=== PATIENT | female | born 1965 | race Caucasian/White ===

== ENCOUNTER → 2017-01-02 | Outpatient (REF) | payer OTHER ==
[2017-01-02 14:49] LABS: VITAMIN B12 LEVEL 252 PG/ML (247-911)
[2017-01-04 00:06] LABS: Lyme Disease IgG/IgM Antibodie <0.91 ISR (0.00-0.90); Lyme Disease IgM Ab Quantitati <0.80 index (0.00-0.79)
== END ==
LOC: M LAB REF 13:11
PROVIDERS: ATTEND Internal Medicine
DX: M25.50 Pain in unspecified joint (principal); R20.2 Paresthesia of skin

== ENCOUNTER → 2017-12-25 | Outpatient (REF) | payer OTHER | LOC: M LAB REF 16:51 | DX: R79.89 Other specified abnormal findings of blood chemistry (principal) | CPT/HCPCS: 84080 ==

== ENCOUNTER → 2018-01-12 | Outpatient (REF) | payer OTHER ==
[2018-01-14 00:07] LABS: Alkaline Phosphatase Iso-Bone 49 % (14-68); Alkaline Phosphatase Iso-Intes 2 % (0-18); Alkaline Phosphatase Iso-Liver 49 % (18-85); TOTAL ALK PHOS 141 IU/L (39-117)
== END ==
LOC: M LAB REF 11:19
DX: R79.89 Other specified abnormal findings of blood chemistry (principal)

== ENCOUNTER → 2020-02-09 | Outpatient (REF) | payer BC ==
[2020-02-09 14:49] LABS: HEMOGLOBIN A1c 6.5 %
[2020-02-09 14:56] LABS: ALT/SGPT 64 U/L (12-78); BILIRUBIN,TOTAL 0.5 MG/DL (0.2-1.0); BLOOD UREA NITROGEN 12 MG/DL (7-18); CALCIUM LEVEL 9.5 MG/DL (8.5-10.1); CARBON DIOXIDE LEVEL 29 MEQ/L (21-32); CHLORIDE LEVEL 106 MEQ/L (98-107); CHOLESTEROL LEVEL 288 MG/DL (<200); CREATININE FOR GFR 0.77 MG/DL (0.55-1.30); GLOMERULAR FILTRATION RATE > 60.0 (>51); GLUCOSE, FASTING 111 MG/DL (70-100); HDL CHOLESTEROL 45 MG/DL (>40); LDL CHOLESTEROL 200 MG/DL (<100); NON-HDL-C 243 MG/DL; POTASSIUM SERUM 4.5 MEQ/L (3.5-5.1); SODIUM LEVEL 139 MEQ/L (136-145); TOTAL 25(OH) VITAMIN D 35.4 NG/ML (30.0-100.0); TOTAL PROTEIN 7.7 GM/DL (6.4-8.2); TRIGLYCERIDES LEVEL 213 MG/DL (<150)
== END ==
LOC: M SFHCPLAZ 10:15
PROVIDERS: ATTEND Nurse Practitioner Adult Health
DX: Z00.00 Encounter for general adult medical examination without abnormal findings (principal); E55.9 Vitamin D deficiency, unspecified; E03.9 Hypothyroidism, unspecified; Z13.220 Encounter for screening for lipoid disorders; Z83.3 Family history of diabetes mellitus

== ENCOUNTER → 2020-02-23 | Outpatient (CLI) | payer BC ==
--- NOTE | 2020-02-23 23:30 | REPPI ---
REASON FOR EXAM: Soft tissue mass. Four views of the 1st digit of the left hand were obtained. There is a possible calcific soft tissue mass density in the volar surface of the thumb at the level of the interphalangeal joint, which measures 8 mm. The exact etiology of this is uncertain. It could represent a calcified inclusion cyst. There is no acute fracture or destructive osseous lesion. IMPRESSION: As above. Electronically Signed by Jerman Mcbride DO 02/24/2020 08:08 A
== END ==
LOC: M PLAIMG 14:12
PROVIDERS: ATTEND Physician Assistant
DX: R22.32 Localized swelling, mass and lump, left upper limb (principal)

== ENCOUNTER → 2020-05-26 | Outpatient (CLI) | payer BC ==
[2020-05-26 10:47] LABS: ALBUMIN 3.8 GM/DL (3.2-5.2); ALT/SGPT 49 U/L (12-78); BILIRUBIN,TOTAL 0.6 MG/DL (0.2-1.0); BLOOD UREA NITROGEN 15 MG/DL (7-18); CALCIUM LEVEL 8.9 MG/DL (8.5-10.1); CARBON DIOXIDE LEVEL 26 MEQ/L (21-32); CHLORIDE LEVEL 109 MEQ/L (98-107); CREATININE FOR GFR 0.85 MG/DL (0.55-1.30); GLOMERULAR FILTRATION RATE > 60.0 (>51); GLUCOSE, FASTING 147 MG/DL (70-100); POTASSIUM SERUM 4.6 MEQ/L (3.5-5.1); SODIUM LEVEL 141 MEQ/L (136-145); THYROID STIMULATING HORMONE 0.638 uIU/ML (0.358-3.740); TOTAL PROTEIN 7.5 GM/DL (6.4-8.2)
[2020-05-26 10:48] LABS: TOTAL 25(OH) VITAMIN D 48.5 NG/ML (30.0-100.0)
== END ==
LOC: M PLALAB 08:46
PROVIDERS: ATTEND Nurse Practitioner Adult Health
DX: E03.9 Hypothyroidism, unspecified (principal); E55.9 Vitamin D deficiency, unspecified; E11.9 Type 2 diabetes mellitus without complications

== ENCOUNTER → 2020-05-31 | Outpatient (REF) | payer BC | LOC: M SFHCPLAZ 16:54 | PROVIDERS: ATTEND Nurse Practitioner Adult Health | DX: R35.0 Frequency of micturition (principal) ==

== ENCOUNTER → 2020-08-23 | Outpatient (REF) | payer BC ==
[2020-08-23 15:05] LABS: ALT/SGPT 43 U/L (12-78); BILIRUBIN,TOTAL 0.4 MG/DL (0.2-1.0); BLOOD UREA NITROGEN 14 MG/DL (7-18); CALCIUM LEVEL 9.3 MG/DL (8.5-10.1); CARBON DIOXIDE LEVEL 30 MEQ/L (21-32); CHLORIDE LEVEL 107 MEQ/L (98-107); CHOLESTEROL LEVEL 303 MG/DL (<200); CHOLESTEROL RISK RATIO 6.183 (<5); GLOMERULAR FILTRATION RATE > 60.0 (>51); GLUCOSE, FASTING 101 MG/DL (70-100); HDL CHOLESTEROL 49 MG/DL (>40); LDL CHOLESTEROL 222 MG/DL (<100); NON-HDL-C 254 MG/DL; RHEUMATOID FACTOR QUANT < 10.0 IU/ML (<15.0); SODIUM LEVEL 141 MEQ/L (136-145); TOTAL 25(OH) VITAMIN D 32.1 NG/ML (30.0-100.0); TOTAL PROTEIN 7.8 GM/DL (6.4-8.2); TRIGLYCERIDES LEVEL 160 MG/DL (<150)
[2020-08-23 15:11] LABS: MALB URINE SIEMENS 19.7 MG/L; MAU/CREAT RATIO 14.8 MCG/MG (0.0-30.0)
[2020-08-23 15:16] LABS: HEMOGLOBIN A1c 5.7 %
== END ==
LOC: M SFHCPLAZ 08:57
PROVIDERS: ATTEND Nurse Practitioner Adult Health
DX: Z13.220 Encounter for screening for lipoid disorders (principal); E11.9 Type 2 diabetes mellitus without complications; K21.9 Gastro-esophageal reflux disease without esophagitis; E03.9 Hypothyroidism, unspecified; E55.9 Vitamin D deficiency, unspecified; M89.8X9 Other specified disorders of bone, unspecified site

== ENCOUNTER → 2020-08-23 | Outpatient (CLI) | payer BC ==
--- NOTE | 2020-08-23 10:06 | REPPI ---
INDICATION: M25.552 LEFT HIP PAIN COMPARISON: None. TECHNIQUE: AP and frog-lateral views of the left hip FINDINGS: No acute fracture or dislocation. No overt arthritic changes are appreciated. Surrounding soft tissues are normal. IMPRESSION: Age-appropriate left hip radiographs. <Electronically signed by Don Dao > 08/23/20 1008
== END ==
LOC: M PLAIMG 08:57
PROVIDERS: ATTEND Nurse Practitioner Adult Health
DX: M25.552 Pain in left hip (principal)

== ENCOUNTER → 2020-10-04 | Outpatient (REF) | payer BC ==
[2020-10-05 10:56] LABS: APPEARANCE, URINE TURBID (CLEAR); BACTERIA, URINE AUTO 1+ (NEGATIVE); BILIRUBIN, URINE AUTO NEGATIVE (NEGATIVE); BLOOD, URINE BLOOD 3+ (NEGATIVE); CALCIUM OXALATE CRYSTALS SMALL; COLOR, URINE AMBER (YELLOW); GLUCOSE, URINE (UA) AUTO NEGATIVE (NEGATIVE); KETONE, URINE AUTO NEGATIVE (NEGATIVE); LEUKOCYTE ESTERASE, URINE AUTO 2+ (NEGATIVE); MUCUS, URINE SMALL (NEGATIVE); NITRITE, URINE AUTO NEGATIVE (NEGATIVE); PROTEIN, URINE AUTO 2+ mg/dL (NEGATIVE); RBC, URINE AUTO TNTC /HPF (0-3); SPECIFIC GRAVITY URINE AUTO 1.018 (1.002-1.035); SQUAMOUS EPITHELIAL CELL UR AU 0 /HPF (0-6); UROBILINOGEN, URINE AUTO 0.2 mg/dL (0.0-2.0); WBC, URINE AUTO 8 /HPF (0-3)
== END ==
LOC: M SFHCPLAZ 09:50
PROVIDERS: ATTEND Physician Assistant
DX: R39.89 Other symptoms and signs involving the genitourinary system (principal); R31.9 Hematuria, unspecified

== ENCOUNTER → 2020-10-12 | Outpatient (REF) | payer BC ==
[2020-10-12 10:15] LABS: BASO # 0.1 10^3/uL (0.0-0.2); BASO % 1.5 % (0.0-1.0); EOS # 0.2 10^3/uL (0.0-0.5); EOS % 2.7 % (0.0-3.0); HEMATOCRIT 44.7 % (36.0-47.0); HEMOGLOBIN 14.8 g/dl (12.0-15.5); LYMPH # 2.2 10^3/uL (1.5-5.0); LYMPH % 29.5 % (24.0-44.0); MEAN CORPUSCULAR HEMOGLOBIN 30.8 pg (27.0-33.0); MEAN CORPUSCULAR HGB CONC 33.1 g/dl (32.0-36.5); MEAN CORPUSCULAR VOLUME 93.1 fl (80.0-96.0); MONO # 0.8 10^3/uL (0.0-0.8); MONO % 10.5 % (2.0-8.0); NEUTROPHILS # 4.2 10^3/uL (1.5-8.5); NEUTROPHILS % 55.5 % (36.0-66.0); PLATELET COUNT, AUTOMATED 306 10^3/uL (150-450); WHITE BLOOD COUNT 7.5 10^3/uL (4.0-10.0)
[2020-10-12 10:43] LABS: BLOOD UREA NITROGEN 9 MG/DL (7-18); CALCIUM LEVEL 9.5 MG/DL (8.5-10.1); CARBON DIOXIDE LEVEL 32 MEQ/L (21-32); CHLORIDE LEVEL 106 MEQ/L (98-107); CREATININE FOR GFR 0.92 MG/DL (0.55-1.30); GLOMERULAR FILTRATION RATE > 60.0 (>51); GLUCOSE, FASTING 85 MG/DL (70-100); PHOSPHORUS LEVEL 2.8 MG/DL (2.5-4.9); POTASSIUM SERUM 4.8 MEQ/L (3.5-5.1); SODIUM LEVEL 140 MEQ/L (136-145)
== END ==
LOC: M SFHCPLAZ 08:03
PROVIDERS: ATTEND Physician Assistant
DX: R31.9 Hematuria, unspecified (principal)

== ENCOUNTER → 2020-10-12 | Outpatient (CLI) | payer BC ==
--- NOTE | 2020-10-12 09:31 | REP ---
INDICATION: R39.89 URINE DISCOLORATION,R31.9 HEMATURIA COMPARISON: None TECHNIQUE: Real time reeves scale and color B-mode ultrasound examination using curved array transducer along with limited Doppler evaluation of the intrarenal vasculature. FINDINGS: Right kidney measures 10.7 x 5.0 x 4.9 cm (RI 0.48) and demonstrates moderate hydronephrosis and proximal hydroureter with small intrarenal calculi suggested. No obvious right renal cyst or mass identified. Left kidney measures 11.0 x 3.6 x 4.6 cm (RI 0.67) and includes two 6 mm midpole cortical cysts with small amount of layering echogenic debris and no evidence for hydronephrosis or obvious mass lesion. The bladder is normal in appearance and demonstrates bilateral ureteral jets. No bladder wall thickening or mass lesion is appreciated. Prevoid bladder measures 403 cc. Postvoid bladder measures 127 cc. Postvoid residual equals 32%. IMPRESSION: 1. Right-sided hydronephrosis and proximal hydroureter with possible small nonobstructing calculi. Left kidney with 6 mm complex cysts and no hydronephrosis noted. 2. Bladder demonstrates normal bilateral ureteral jets likely excluding ureteral obstruction. However, increased postvoid residual noted during examination may warrant further investigation. <Electronically signed by Don Dao > 10/12/20 0926
== END ==
LOC: M WHC 07:46
PROVIDERS: ATTEND Physician Assistant
DX: R31.9 Hematuria, unspecified (principal); R39.89 Other symptoms and signs involving the genitourinary system

== ENCOUNTER → 2020-11-01 | Outpatient (CLI) | payer BC ==
--- NOTE | 2020-11-01 08:42 | REP ---
INDICATION: HEMATURIA ? KIDNEY STONES. COMPARISON: Abdomen pelvis CT dated 02/15/2010. TECHNIQUE: Abdomen/pelvis CT without IV or bowel contrast FINDINGS: There is a 9 mm calcification in the proximal right ureter just distal to the UPJ with moderate right hydronephrosis. There is no right perinephric stranding. There are least 5 nonobstructive renal calculi measuring 2-4 mm. There is no left ureteral calculus. There are at least 5 nonobstructive left renal calculi measuring 2-5 mm. There is no left perinephric stranding. The adrenals are unremarkable. There are 2 hypodensities in the left lobe of the liver 1 measuring 14 mm in the other 6 mm, likely hepatic cysts, not identified on the comparison study. The unenhanced hepatic parenchyma demonstrates hepato steatosis but is otherwise unremarkable. There are surgical clips in the gallbladder fossa. This is unchanged. The unenhanced pancreas and spleen are unremarkable. The adrenals are unremarkable. The abdominal aorta is unremarkable. There is no periaortic adenopathy or mass. The bowel and mesentery are unremarkable except for proximal sigmoid colon diverticulosis without diverticulitis. Pelvis: The appendix is unremarkable. There is no ascites or adenopathy. There is a hysterectomy. The vaginal cuff and adnexa are unremarkable. The bladder is unremarkable. IMPRESSION: 9 mm proximal right ureter calculus with moderate right hydronephrosis. No perinephric stranding. Multiple small bilateral nonobstructive renal calculi as described. Small hypodensities in the hepatic left lobe, likely cysts. Cholecystectomy and hysterectomy. No bladder calculi. Diverticulosis without diverticulitis. <Electronically signed by Octavio Araya > 11/01/20 2017
== END ==
LOC: M RAD 08:02
PROVIDERS: ATTEND Physician Assistant
DX: R31.9 Hematuria, unspecified (principal); N20.2 Calculus of kidney with calculus of ureter; Z90.49 Acquired absence of other specified parts of digestive tract; Z90.79 Acquired absence of other genital organ(s)

== ENCOUNTER → 2020-11-21 | Outpatient (REF) | payer BC | LOC: M LAB REF 17:12 | PROVIDERS: ATTEND Dermatology | DX: L72.0 Epidermal cyst (principal) ==

== ENCOUNTER 2020-12-03 01:16 | Inpatient (IN) | payer BC ==
[~2020-12-03] VITALS: Ht 165.1 cm; Wt 82.0 kg
[2020-12-03 02:30] VITALS: BP 146/87
[2020-12-03] MEDS ORDERED: ACETAMINOPHEN TAB 650MG DOSE (2X325MG) PO PRN (03:15)
[2020-12-03] MEDS ORDERED: MORPHINE 2 MG/ML 1ML VIAL (J2270) IV PRN (03:15)
[2020-12-03] MEDS ORDERED: LR 1,000 ML IV SCH ×2 (03:15→11:30)
[2020-12-03] MEDS ORDERED: MOM 30ML SUSPENSION UDC PO PRN (03:15)
[2020-12-03] MEDS ORDERED: MAALOX 30 ML SUSP *UDC PO PRN (03:15)
--- NOTE | 2020-12-03 03:21 | HPEPDOC ---
[facility] Medical History & Physical Date of Admission Dec 03, 2020 Date of Service: Dec 03, 2020 Attending Physician: MARTY ROWLAND MD History and Physical TIME OF SERVICE: 340am CHIEF COMPLAINT: pain HISTORY OF PRESENT ILLNESS: This 55 yr old F recently had hematuria and was diagnosed w a 9 mm right ureter calculus with hydronephrosis on November 01; she was scheduled for an elective procedure on December 22 but yesterday she presented to [facility] w c/o acute dull/aching non-radiating right lower abdominal pain associated with n/v that begun yesterday afternoon at 5PM. The hematuria has resolved. Per d/w the provider at [place] the work up was only remarkable for a lactic acid of 3.5, and WBC # of 14; repeat CT confirmed the presence of the stone. She was transferred for Urological procedure. REVIEW OF SYSTEMS: 12-point review of systems negative except as listed in HPI PAST MEDICAL/ SURGICAL HISTORY: NIDDM Hypothyroidism Insomnia DLP Renal calculi IBS Diverticulitis Depression ALPESH Obesity Cholecystectomy Septoplasty Hysterectomy w BSO Tubal ligation SOCIAL HISTORY: She quit smoking 2 yrs ago FAMILY HISTORY: Father COPD 2/2 tobacco use/ Mother CVA, DM, COPD, CAD / Brother kidney transplant/ Son kidney stones ALLERGIES: Please see below. HOME MEDICATIONS: Please see below. PHYSICAL EXAMINATION: VITAL SIGNS: Please see below. GENERAL APPEARANCE: well nourished and developed /NAD HEENT: EOMI / no scleral icterus CARDIOVASCULAR: RRR/NMRG LUNGS: CTAB on RA ABDOMEN: obese/ soft & NT w palpation MUSCULOSKELETAL: REMINGTON x 4 INTEGUMENT: not flushed or diaphoretic NEUROLOGICAL: CN 2-12 intact / speech not dysarthric PSYCHIATRIC: A&Ox 3 / able to understand and follow all commands LABORATORY DATA: see HPI IMAGING: see HPI MICROBIOLOGY: COVID neg at [place] ASSESSMENT: is a 55 yr old w a hx of nephrolithiasis, NIDDM, hypothyroidism, IBS, depression , obesity and ALPESH who presented to [facility] w c/o of right lower abdominal pain that was attributed to ureteral stone; she was transferred here for a Urological procedure. PLAN: 1 Hydroureteronephrosis Plan: NPO / LR/ IV morphine & hold oxycodone / c/w Flomax & Rocephin / Zofran / f/u UA w cx / strain urine pending Uro eval by 2 Lactic acidosis Was likely 2/2 dehydration from vomiting Plan: IVF / trend 3 Leucocytosis In the absence of SIRS was likely reactive Plan: f/u repeat CBC 4 NIDDM Plan: f/u accuchecks / hypoglycemia protocol / sliding scale insulin / hold oral anti-glycemic / f/u A1C (target A1C is <7 to 6.5% ) 5 Hypothyroidism Plan: Levothyroxine 7 Insomnia Plan: Temazepam 8 ALPESH Plan: own CPAP 9 Obesity Complicates care DVT px w SCDs Dispo: home after at least 2 midnights stay Home Medications Scheduled Levothyroxine Sodium (Levothyroxine Sodium) 150 Mcg Tablet, 150 MCG PO DAILY Omeprazole (Omeprazole) 40 Mg Capsule.dr, 40 MG PO DAILY Sitagliptin Phosphate (Januvia) 100 Mg Tablet, 100 MG PO DAILY Tamsulosin Hcl (Tamsulosin HCl) 0.4 Mg Capsule, 0.4 MG PO DAILY Scheduled PRN Hydroxyzine HCl (Hydroxyzine HCl) 10 Mg Tablet, 10 MG PO DAILY PRN for ITCHING Oxycodone HCl/Acetaminophen (Oxycodone-Acetaminophen 5-325) 1 Each Tablet, 1 TAB PO Q6H PRN for PAIN Temazepam (Temazepam) 15 Mg Capsule, 15 MG PO QHS PRN for SLEEP Allergies Coded Allergies: codeine (Verified Adverse Reaction, Unknown, 12/03/20) A-FIB/CHADSVASC A-FIB History Current/History of A-Fib/PAF?: No Current PO Anticoag Therapy: No MARTY ROWLAND MD Dec 03, 2020 03:21
[2020-12-03] MEDS ORDERED: HYDR-643 PO (03:35)
[2020-12-03] MEDS ORDERED: TEMA15CA2 PO (03:35)
[2020-12-03] MEDS ORDERED: JANU100T PO (03:35)
[2020-12-03] MEDS ORDERED: OXYC1TAB23 PO (03:35)
[2020-12-03] MEDS ORDERED: TAMS1CAP17 PO (03:35)
[2020-12-03] MEDS ORDERED: LEVO150T7 PO (03:35)
[2020-12-03] MEDS ORDERED: OMEP-221 PO (03:35)
[2020-12-03 03:45] LABS: HEMOGLOBIN 12.3 g/dl (12.0-15.5); MEAN CORPUSCULAR HEMOGLOBIN 31.2 pg (27.0-33.0); MEAN CORPUSCULAR HGB CONC 33.2 g/dl (32.0-36.5); MEAN CORPUSCULAR VOLUME 93.9 fl (80.0-96.0); PLATELET COUNT, AUTOMATED 236 10^3/uL (150-450); RED BLOOD COUNT 3.94 10^6/uL (4.00-5.40); WHITE BLOOD COUNT 11.9 10^3/uL (4.0-10.0)
[2020-12-03 03:58] LABS: INR 1.01; PROTHROMBIN TIME 13.5 SECONDS (12.5-14.3)
[2020-12-03 03:59] LABS: PARTIAL THROMBOPLASTIN TIME 26.6 SECONDS (24.2-38.5)
[2020-12-03] MEDS ORDERED: ONDANSETRON 4MG/2ML VIAL IV PRN ×2 (04:10→11:30)
[2020-12-03 04:21] LABS: ALBUMIN 3.2 GM/DL (3.2-5.2); ALT/SGPT 46 U/L (12-78); BILIRUBIN,TOTAL 0.3 MG/DL (0.2-1.0); BLOOD UREA NITROGEN 14 MG/DL (7-18); CALCIUM LEVEL 8.3 MG/DL (8.5-10.1); CARBON DIOXIDE LEVEL 26 MEQ/L (21-32); CHLORIDE LEVEL 113 MEQ/L (98-107); GLOMERULAR FILTRATION RATE > 60.0 (>51); GLUCOSE, FASTING 109 MG/DL (70-100); SODIUM LEVEL 144 MEQ/L (136-145)
[2020-12-03] MEDS ORDERED: TEMAZEPAM 15 MG CAP PO PRN (04:25)
[2020-12-03] MEDS ORDERED: DEXTROSE 50% 50 ML SYRINGE IV PRN (04:25)
[2020-12-03] MEDS ORDERED: GLUCAGON INJ 1MG VIAL SC PRN (04:25)
[2020-12-03] MEDS ORDERED: GLUCOSE 4GM CHEW TABLET PO PRN (04:25)
[2020-12-03 06:00] VITALS: BP 121/59
[2020-12-03] MEDS ORDERED: LEVOTHYROXINE 150MCG TABLET (0.15MG) PO SCH (06:00)
[2020-12-03] MEDS: HumaLOG INSULIN (NovoLOG) PER UNIT SC SCH ×2 (06:00→11:48)
[2020-12-03 07:18] LABS: HEMOGLOBIN A1c 5.7 %
[2020-12-03 07:28] LABS: ALBUMIN 3.1 GM/DL (3.2-5.2); ALT/SGPT 45 U/L (12-78); BILIRUBIN,TOTAL 0.4 MG/DL (0.2-1.0); BLOOD UREA NITROGEN 12 MG/DL (7-18); CALCIUM LEVEL 8.3 MG/DL (8.5-10.1); CARBON DIOXIDE LEVEL 29 MEQ/L (21-32); CHLORIDE LEVEL 111 MEQ/L (98-107); CREATININE FOR GFR 0.74 MG/DL (0.55-1.30); GLOMERULAR FILTRATION RATE > 60.0 (>51); GLUCOSE, FASTING 96 MG/DL (70-100); POTASSIUM SERUM 4.2 MEQ/L (3.5-5.1); SODIUM LEVEL 145 MEQ/L (136-145); TOTAL PROTEIN 6.2 GM/DL (6.4-8.2)
[2020-12-03] MEDS ORDERED: TAMSULOSIN 0.4 MG CAP PO SCH (09:00)
[2020-12-03] MEDS ORDERED: CONRAY-60 60% 50ML VIAL (Q9961) As Ordered ONE (09:41)
[2020-12-03] MEDS ORDERED: fentaNYL 100 MCG/2 ML INJECTION (J3010) As Ordered ONE (10:02)
[2020-12-03] MEDS ORDERED: MIDAZOLAM INJ 2MG/2ML VIAL (J2250 PER 1MG) As Ordered ONE (10:02)
[2020-12-03] MEDS ORDERED: ONDANSETRON 4MG/2ML VIAL As Ordered ONE (10:04)
[2020-12-03] MEDS ORDERED: propofoL 200 MG/20 ML VIAL As Ordered ONE (10:04)
[2020-12-03] MEDS ORDERED: LIDOCAINE 2% 100MG/5ML SDV (FOR ANES.) As Ordered ONE (10:04)
[2020-12-03] MEDS ORDERED: ceFAZolin 2 GM/D5W 50 ML IV BAG (J0690 PER 500MG) As Ordered ONE (10:26)
[2020-12-03] MEDS ORDERED: LIDOCAINE 2% 5ML JELLY UROJET TOP ONE (10:50)
--- NOTE | 2020-12-03 10:55 | SMCUROLCON ---
Urology Consultation General Date of Consultation 12/03/20 Reason For Consultation This patient is seen for Hematuria. History of Present Illness The patient is a 55-year-old female with a past medical history for renal calculi. She was scheduled for a right ureteroscopic laser lithotripsy and middle december for a right UPJ or proximal ureteral calculus. She was doing well until about 5:30 last night while eating dinner that she began having some right lower quadrant and right flank pain. This persisted and became so severe that she presented to the emergency room. CT scan showed that the stone had migrated distally and was causing some hydronephrosis. She also had some elevated lactic acid levels and was transferred to [facility]. X-ray confirmed that she has a mid ureteral calculus. Options were presented and we decided to insert a ureteral stent for pain control and ureteral dilation prior to her ureteroscopic surgery in another 2 weeks. Past Medical History Medical History Diabetes Hypothyroidism Insomnia Obstructive sleep apnea Renal calculi Irritable bowel syndrome Diverticulitis Depression Surgical Hstory Cholecystectomy Septoplasty Hysterectomy with BSO Tubal ligation Social History * Smoker: former Smoker Alcohol: occationally Drugs: denies Medications Current Medications Current Medications Medications (Trade) Dose Ordered Sig/Shereen Route PRN Reason Start Time Stop Time Status Last Admin Dose Admin Acetaminophen (Tylenol Tab) 650 mg Q4H PRN PO PAIN OR FEVER 12/03/20 03:15 Al Hydrox/Mg Hydrox/Simethicone (Mylanta) 30 ml DAILY PRN PO DYSPEPSIA 12/03/20 03:15 Ceftriaxone Sodium 1 gm/ Dextrose 50 ml @ 100 mls/hr Q24H IV 12/04/20 00:00 Dextrose (Dextrose 50%) 25 ml ASDIRECTED PRN IV SEE LABEL COMMENTS 12/03/20 04:25 Glucagon (Glucagon) 1 mg ASDIRECTED PRN SC SEE LABEL COMMENTS 12/03/20 04:25 Glucose (Glucose) 16 GM ASDIRECTED PRN PO SEE LABEL COMMENTS 12/03/20 04:25 Home Med (Med Rec Complete!) ASDIRECTED XX 12/03/20 04:00 12/03/20 04:01 DC Insulin Human Lispro (HumaLOG INSULIN) See Protocol Table Q6H SC 12/03/20 06:00 Lactated Ringer's 1,000 ml @ 100 mls/hr Q10H IV 12/03/20 03:15 12/03/20 04:36 Levothyroxine Sodium (Synthroid) 150 mcg DAILY@0600 PO 12/03/20 06:00 12/03/20 06:14 Magnesium Hydroxide (Milk Of Magnesia) 30 ml DAILY PRN PO CONSTIPATION 12/03/20 03:15 Morphine Sulfate (Morphine Sulfate Inj) 2 mg Q2H PRN IV BREAKTHROUGH PAIN 12/03/20 03:15 Ondansetron HCl (ZOFRAN INJection) 4 mg Q4HP PRN IV NAUSEA OR VOMITING 12/03/20 04:10 Tamsulosin HCl (Flomax) 0.4 mg DAILY PO 12/03/20 09:00 Temazepam (Restoril) 15 mg QHS PRN PO SLEEP 12/03/20 04:25 Allergies Allergies: Coded Allergies: TAPE (Verified Allergy, Mild, blisters, 12/03/20) latex (Verified Allergy, Mild, rash, 12/03/20) codeine (Verified Adverse Reaction, Unknown, 12/03/20) Review of Systems General: Reports: Normal Appetite; Denies: Fatigue, Malaise Constitutional: Denies: Fever, Chills, Sweats, Weakness, Malaise Eyes: Denies: Pain, Vision change, Conjunctivae inflammation, Eyelid i nflammation, Redness, Other ENT: Denies: Head Aches, Sore Throat, Epistaxis Skin: Denies: Rash, Lesions, Breakdown, Nail Changes Pulmonary: Denies: Dyspnea, Cough Cardiovascular: Denies Chest Pain, Denies Palpitations Gastrointestinal: Denies: Nausea, Vomiting, Abdominal Pain Genitourinary: Denies: Dysuria, Frequency, Incontinence, Hematuria Hematologic: Denies: Bruising, Bleeding Excessively Endocrine: Denies: Polydipsia, Polyphagia, Polyuria Musculoskeletal: Denies: Neck Pain, Back Pain Neurological: Denies: Weakness, Numbness, Incoordination, Change in Speech Psych: Reports: Mood Normal; Denies: Anxiety, Depression Physical Examination General Exam: Alert, No Acute Distress EYE EXAM: PERRLA, Conjunctiva & lids normal, EOMI; No: Sclera icteric ENT EXAM: Atraumatic, Mucous membr. moist/pink, Pharynx Normal Neck Exam: Supple; No: JVD, thyromegaly Chest Exam: Clear to auscultation, Normal air movement Heart Exam: Rate Normal, Regular Rhythm, Normal S1, Normal S2; No: Murmurs, Rubs Abdomen Exam: Normal Bowel Sounds, Soft; No: Tenderness, Hepatospenomegaly Extremity Exam: Normal Pulses, Other (2+ right CVA tenderness); No: Clubbing, Cyanosis, Edema Skin Exam: Nl turgor and temperature; No: Rash, Breakdown Neuro Exam: Normal Gait, Normal Speech, Cranial Nerves 3-12 NL, Reflexes 2+ Psych Exam: Mental status NL, Mood NL, Oriented x 3 Vital Signs/I&O Vital Signs Date Time Temp Pulse Resp B/P (MAP) Pulse Ox O2 Delivery O2 Flow Rate FiO2 12/03/20 06:00 97.2 87 18 121/59 (79) 94 Room Air I&O- Last 24 Hours up to 6 AM 12/03/20 06:00 Intake Total 300 ml Output Total 500 ml Balance -200 ml Laboratory Data 24H Labs Laboratory Tests 2 12/03/20 03:34: Nucleated Red Blood Cells % (auto) 0.0, Prothrombin Time 13.5, Prothromb Time International Ratio 1.01, Activated Partial Thromboplast Time 26.6, Anion Gap 5L, Glomerular Filtration Rate > 60.0, Lactic Acid Level 1.4, Calcium Level 8.3L, Total Bilirubin 0.3, Aspartate Amino Transf (AST/SGOT) 18, Alanine Aminotransferase (ALT/SGPT) 46, Alkaline Phosphatase 99, Total Protein 6.0L, Albumin 3.2, Albumin/Globulin Ratio 1.1L 12/03/20 06:11: Bedside Glucose (Misc Panel) 99 12/03/20 06:23: Urine Color STRAW, Urine Appearance CLEAR, Urine pH 6.0, Urine Specific [place] 1.008, Urine Protein NEGATIVE, Urine Glucose (UA) NEGATIVE, Urine Ketones NEGATIVE, Urine Blood 1+H, Urine Nitrite NEGATIVE, Urine Bilirubin NEGATIVE, Urine Urobilinogen 0.2, Urine Leukocyte Esterase NEGATIVE, Urine WBC (Auto) 3, Urine RBC (Auto) 5H, Urine Hyaline Casts (Auto) 0, Urine Bacteria (Auto) NEGATIVE, Urine Squamous Epithelial Cells 0, Urine Mucus (Auto) SMALL, Urine Sperm (Auto) 12/03/20 06:25: Anion Gap 5L, Glomerular Filtration Rate > 60.0, Calcium Level 8.3L, Total Bilirubin 0.4, Aspartate Amino Transf (AST/SGOT) 19, Alanine Aminotransferase (ALT/SGPT) 45, Alkaline Phosphatase 105, Total Protein 6.2L, Albumin 3.1L, Albumin/Globulin Ratio 1.0L, Estimated Mean Plasma Glucose 117H, Hemoglobin A1c 5.7 CBC/BMP Laboratory Tests 12/03/20 03:34 12/03/20 06:25 Assessment Patient has an obstructing right ureteral calculus with hydronephrosis Plan Patient will be brought to the operating room for stent insertion and will have her scheduled ureteroscopic laser lithotripsy. DMITRIY DELGADO MD Dec 03, 2020 10:55
--- NOTE | 2020-12-03 11:00 | ROOPDOC ---
[facility] Report Of Operation Report of Operation DATE OF PROCEDURE: 12/03/20 PREPROCEDURE DIAGNOSES: Right ureteral calculus with hydronephrosis POSTPROCEDURE DIAGNOSES: Same plus stenosis of right ureteral orifice PROCEDURE: Cystoscopy, right retrograde pyelogram, insertion of right ureteral stent, fluoroscopy with x-ray interpretation SURGEON: Jean Duenas MD [employer] ALTERATION: None ANESTHESIA: Mac ESTIMATED BLOOD LOSS: Approximately mL. COMPLICATIONS: None REMARKS: Very narrow right ureteral orifice PROCEDURE NOTE: Patient was brought to the operating room for stent insertion because of ureteral obstruction, hydronephrosis and history of diabetes DESCRIPTION OF PROCEDURE: The patient was placed on the table in supine p osition, given Mac anesthesia, placed in the lithotomy position, prepped with Betadine paint and draped in aseptic manner. Timeout was then performed. A #21 [place] cystoscope was then inserted into the meatus and advanced under direct vision of a 30 lens to the bladder. The bladder mucosa was normal. The right ureteral orifice was identified and attempted to be catheterized with a Pollack catheter but was too small to accept the catheter. A wire guide was then used to assist entry of the catheter into the ureteral orifice. 10 mL of Conray was then injected showing the patient had an obstructing midureteral calculus. A wire guide was able to be passed around the stone up to the renal pelvis and a 6 [place] double-J stent was then passed over this wire where it curled well in the renal pelvis and in the bladder when the wire was removed. The bladder was then drained, cystoscope was removed and the patient was awakened and sent to recovery room in stable condition having tolerated procedure well. Fluoroscopy was used and interpreted throughout the case to diagnose the patient's calculus and place the ureteral stent. Patient will keep her scheduled ureteroscopic laser lithotripsy in mid December. JEAN DUENAS MD Dec 03, 2020 11:00
[2020-12-03] MEDS ORDERED: IBUPROFEN 600MG TAB PO PRN (11:20)
[2020-12-03 11:25] VITALS: BP 136/63
[2020-12-03] MEDS ORDERED: oxyCODONE 5MG TAB PO PRN (11:30)
[2020-12-03] MEDS ORDERED: fentaNYL 100 MCG/2 ML INJECTION (J3010) IV PRN (11:30)
--- NOTE | 2020-12-03 19:14 | DS.PDOC ---
Discharge Summary General Date of Admission Dec 03, 2020 at 02:30 Date of Discharge Dec 03, 2020 Specialist/Consultants [facility], Dr. Duenas Discharge Summary PROCEDURES PERFORMED DURING STAY: Insertion of right ureteral stent by Dr. Duenas on 12/03/2020 ADMITTING DIAGNOSES: 1. Right hydroureteronephrosis 2. NIDDM 3. Hypothyroidism 4. Insomnia 5. ALPESH 6. Obesity DISCHARGE DIAGNOSES: 1. Right ureteral calculus with hydroureteronephrosis 2. NIDDM 3. Hypothyroidism 4. Insomnia 5. ALPESH 6. Obesity COMPLICATIONS/CHIEF COMPLAINT: Hematuria. HISTORY OF PRESENT ILLNESS: Mrs. Davis is a 55 year old female with 9mm right ureter calculus with hydronephrosis who was transferred here from [place] for abdominal pain. On 11/01/2020, she was found to have a 9mm right ureter calculus with hydronephrosis and had an elective procedure on 12/22/2020. On day prior to admission, she presented to [place] with acute, dull, nonradiating, right lower abdominal pain with associated nausea and vomiting. This started around 5 PM the day prior to admission. At [place] she had a lactic acid of 3.5 and a white blood count of 14. Repeat CT demonstrated the stone. She is transferred to our facility for urologic procedure. HOSPITAL COURSE: Dr. Duenas evaluated the patient and took the patient to the OR today. He placed a right ureteral stent. He was okay with patient going home today and keeping appointment on 12/22/2020. Patient felt well. Abdominal pain was gone. Patient was discharged home today. DISCHARGE MEDICATIONS: Please see below. ALLERGIES: Please see below. PHYSICAL EXAMINATION ON DISCHARGE: VITAL SIGNS: Please see below. GENERAL: Comfortable, in no apparent distress. HEENT: Head normocephalic/atraumatic, EOMI, sclera clear. NECK: Supple RESPIRATORY: Lungs clear to auscultation bilaterally, no rales, wheeze or rhonchi. CARDIOVASCULAR: Regular rate and rhythm. ABDOMEN: Soft, normal bowel sounds. MUSCLE SKELETAL: Muscle strength 5/5 in all extremities. NEUROLOGICAL: CN 312 grossly intact, no focal deficits noted. PSYCHOLOGICAL: Normal mood and affect LABORATORY DATA: Please see below. IMAGING: None PROGNOSIS: Good ACTIVITY: As tolerated DIET: Carbohydrate consistent DISCHARGE PLAN: Home DISPOSITION: Home, Self-Care. DISCHARGE INSTRUCTIONS: 1. Follow with PCP in 1-2 weeks 2. Keep appointment on 12/22/2020 with urology DISCHARGE CONDITION: Stable Total time spent on discharge planning, discharge summary, and medication reconciliation: 40 minutes Vital Signs/I&Os Vital Signs Date Time Temp Pulse Resp B/P (MAP) Pulse Ox O2 Delivery O2 Flow Rate FiO2 12/03/20 11:25 98.6 67 20 136/63 (87) 97 Room Air I&O- Last 24 Hours up to 6 AM 12/03/20 06:00 Intake Total 300 ml Output Total 500 ml Balance -200 ml Laboratory Data Labs 24H Laboratory Tests 2 12/03/20 03:34: Nucleated Red Blood Cells % (auto) 0.0, Prothrombin Time 13.5, Prothromb Time International Ratio 1.01, Activated Partial Thromboplast Time 26.6, Anion Gap 5L, Glomerular Filtration Rate > 60.0, Lactic Acid Level 1.4, Calcium Level 8.3L, Total Bilirubin 0.3, Aspartate Amino Transf (AST/SGOT) 18, Alanine Aminotransferase (ALT/SGPT) 46, Alkaline Phosphatase 99, Total Protein 6.0L, Albumin 3.2, Albumin/Globulin Ratio 1.1L 12/03/20 06:11: Bedside Glucose (Misc Panel) 99 12/03/20 06:23: Urine Color STRAW, Urine Appearance CLEAR, Urine pH 6.0, Urine Specific [place] 1.008, Urine Protein NEGATIVE, Urine Glucose (UA) NEGATIVE, Urine Ketones NEGATIVE, Urine Blood 1+H, Urine Nitrite NEGATIVE, Urine Bilirubin NEGATIVE, Urine Urobilinogen 0.2, Urine Leukocyte Esterase NEGATIVE, Urine WBC (Auto) 3, Urine RBC (Auto) 5H, Urine Hyaline Casts (Auto) 0, Urine Bacteria (Auto) NEGATIVE, Urine Squamous Epithelial Cells 0, Urine Mucus (Auto) SMALL, Urine Sperm (Auto) 12/03/20 06:25: Anion Gap 5L, Glomerular Filtration Rate > 60.0, Calcium Level 8.3L, Total Bilirubin 0.4, Aspartate Amino Transf (AST/SGOT) 19, Alanine Aminotransferase (ALT/SGPT) 45, Alkaline Phosphatase 105, Total Protein 6.2L, Albumin 3.1L, Albumin/Globulin Ratio 1.0L, Estimated Mean Plasma Glucose 117H, Hemoglobin A1c 5.7 12/03/20 10:56: Bedside Glucose (Misc Panel) 88 CBC/BMP Laboratory Tests 12/03/20 03:34 12/03/20 06:25 FSBS Laboratory Tests Test 12/03/20 06:11 12/03/20 10:56 Range/Units Bedside Glucose (Misc Panel) 99 88 70-105 MG/DL Discharge Medications Scheduled Levothyroxine Sodium (Levothyroxine Sodium) 150 Mcg Tablet, 150 MCG PO DAILY, (Reported) Omeprazole (Omeprazole) 40 Mg Capsule.dr, 40 MG PO DAILY, (Reported) Sitagliptin Phosphate (Januvia) 100 Mg Tablet, 100 MG PO DAILY, (Reported) Tamsulosin Hcl (Tamsulosin HCl) 0.4 Mg Capsule, 0.4 MG PO DAILY, (Reported) Scheduled PRN Hydroxyzine HCl (Hydroxyzine HCl) 10 Mg Tablet, 10 MG PO DAILY PRN for ITCHING, (Reported) Oxycodone HCl/Acetaminophen (Oxycodone-Acetaminophen 5-325) 1 Each Tablet, 1 TAB PO Q6H PRN for PAIN, (Reported) Temazepam (Temazepam) 15 Mg Capsule, 15 MG PO QHS PRN for SLEEP, (Reported) Allergies Coded Allergies: TAPE (Verified Allergy, Mild, blisters, 12/03/20) latex (Verified Allergy, Mild, rash, 12/03/20) codeine (Verified Adverse Reaction, Unknown, 12/03/20) MIRI MCKEON DO Dec 03, 2020 19:14
[2020-12-04] MEDS ORDERED: cefTRIAXone SOD 1 GM in D5W MINI-BAG PLUS 50 ML IV SCH ×2
[2020-12-04] MEDS ORDERED: ceFAZolin SOD 2 GM in IV 1 EA IV ONE (06:00)
== END 2020-12-03 13:25 | disposition home or self-care (01) | DRG 465 ==
LOC: M MSPAV 02:30
PROVIDERS: ADMIT Internal Medicine; ATTEND Internal Medicine
PROC: BW11ZZZ Fluoroscopy of Abdomen and Pelvis (ICD-10-PCS; 2020-12-03)
PROC: 0T768DZ Dilation of Right Ureter with Intraluminal Device, Via Natural or Artificial Opening Endoscopic (ICD-10-PCS; principal; 2020-12-03 09:33)
DX: N13.1 Hydronephrosis with ureteral stricture, not elsewhere classified (principal); F32.9 Major depressive disorder, single episode, unspecified; E11.9 Type 2 diabetes mellitus without complications; E03.9 Hypothyroidism, unspecified; G47.00 Insomnia, unspecified; E78.5 Hyperlipidemia, unspecified; K58.9 Irritable bowel syndrome, unspecified; G47.33 Obstructive sleep apnea (adult) (pediatric); E66.9 Obesity, unspecified; Z90.49 Acquired absence of other specified parts of digestive tract; Z87.891 Personal history of nicotine dependence; Z79.899 Other long term (current) drug therapy; Z88.5 Allergy status to narcotic agent; Z68.30 Body mass index [BMI] 30.0-30.9, adult

== ENCOUNTER → 2020-12-15 | Outpatient (CLI) | payer BC ==
[~2020-12-15] MED LIST: HYDR-643 PO; JANU100T PO; LEVO150T7 PO; OMEP-221 PO; OXYC1TAB23 PO; TAMS1CAP17 PO; TEMA15CA2 PO
--- NOTE | 2020-12-15 22:10 | ECGEPIP ---
[facility] Test Date: 2020-12-15 Pat Name: DAO WHITAKER Department: Room: - Gender: Female Home School Coordinator: SOLEDAD : 1965 Requested By: Jessica GONCALVES Order Number: [id number] Reading MD: Yuan Martinez Measurements Intervals [place] Rate: 106 P: 55 CA: 136 QRS: 60 QRSD: 72 T: 18 QT: 348 QTc: 462 Interpretive Statements Sinus tachycardia Nonspecific ST-T abnormality No prior ECG available for comparison at the time of interpretation. Electronically Signed on 12-15-2020 22:10:09 EDT by Yuan Martinez
== END ==
LOC: M EKG 08:56
PROVIDERS: ATTEND Nurse Practitioner Women's Health
DX: N13.2 Hydronephrosis with renal and ureteral calculous obstruction (principal); Z01.818 Encounter for other preprocedural examination; R94.31 Abnormal electrocardiogram [ECG] [EKG]

== ENCOUNTER → 2020-12-15 | Outpatient (CLI) | payer BC ==
--- NOTE | 2020-12-15 08:37 | REPPI ---
INDICATION: URETERAL STONE WITH HYDRONEPHROSIS PRE OP TESTING COMPARISON: None. TECHNIQUE: PA and lateral. FINDINGS: The mediastinum and cardiac silhouette are normal. The lung george demonstrate chronic appearing changes and suggestions for COPD without acute consolidation, effusion, or pneumothorax. The skeletal structures are intact and normal. IMPRESSION: No acute cardiopulmonary process. <Electronically signed by Don Dao > 12/15/20 0826
[2020-12-15 11:20] LABS: AMORPHOUS SEDIMENT SMALL (NEGATIVE); APPEARANCE, URINE CLOUDY (CLEAR); BACTERIA, URINE AUTO NEGATIVE (NEGATIVE); BILIRUBIN, URINE AUTO NEGATIVE (NEGATIVE); BLOOD, URINE BLOOD 3+ (NEGATIVE); COLOR, URINE YELLOW (YELLOW); GLUCOSE, URINE (UA) AUTO NEGATIVE (NEGATIVE); KETONE, URINE AUTO NEGATIVE (NEGATIVE); LEUKOCYTE ESTERASE, URINE AUTO 2+ (NEGATIVE); MUCUS, URINE SMALL (NEGATIVE); NITRITE, URINE AUTO NEGATIVE (NEGATIVE); PROTEIN, URINE AUTO 2+ mg/dL (NEGATIVE); RBC, URINE AUTO TNTC /HPF (0-3); SPECIFIC GRAVITY URINE AUTO 1.009 (1.002-1.035); SQUAMOUS EPITHELIAL CELL UR AU 0 /HPF (0-6); UROBILINOGEN, URINE AUTO 0.2 mg/dL (0.0-2.0); WBC, URINE AUTO 54 /HPF (0-3)
[2020-12-15 11:24] LABS: HEMOGLOBIN 14.5 g/dl (12.0-15.5); MEAN CORPUSCULAR HEMOGLOBIN 30.7 pg (27.0-33.0); MEAN CORPUSCULAR HGB CONC 32.2 g/dl (32.0-36.5); MEAN CORPUSCULAR VOLUME 95.1 fl (80.0-96.0); PLATELET COUNT, AUTOMATED 312 10^3/uL (150-450); RED BLOOD COUNT 4.73 10^6/uL (4.00-5.40); WHITE BLOOD COUNT 7.2 10^3/uL (4.0-10.0)
[2020-12-15 11:32] LABS: INR 0.86; PROTHROMBIN TIME 11.9 SECONDS (12.5-14.3)
[2020-12-15 11:33] LABS: PARTIAL THROMBOPLASTIN TIME 28.7 SECONDS (24.2-38.5)
[2020-12-15 12:18] LABS: BLOOD UREA NITROGEN 22 MG/DL (7-18); CALCIUM LEVEL 9.8 MG/DL (8.5-10.1); CARBON DIOXIDE LEVEL 24 MEQ/L (21-32); CHLORIDE LEVEL 106 MEQ/L (98-107); CREATININE FOR GFR 0.89 MG/DL (0.55-1.30); GLOMERULAR FILTRATION RATE > 60.0 (>51); GLUCOSE, FASTING 180 MG/DL (70-100); POTASSIUM SERUM 4.1 MEQ/L (3.5-5.1); SODIUM LEVEL 139 MEQ/L (136-145)
== END ==
LOC: M PLAIMG 08:02
PROVIDERS: ATTEND Nurse Practitioner Women's Health
DX: N13.2 Hydronephrosis with renal and ureteral calculous obstruction (principal); Z01.818 Encounter for other preprocedural examination

== ENCOUNTER → 2020-12-18 | Outpatient (CLI) | payer BC | LOC: M LABSMTC 09:39 | PROVIDERS: ATTEND Anesthesiology | DX: Z11.52 Encounter for screening for COVID-19 (principal) ==

== ENCOUNTER 2020-12-22 13:06 | Day surgery (SDC) | payer BC ==
[~2020-12-22] VITALS: Ht 165.1 cm; Wt 81.6 kg
[~2020-12-22 13:06] MED LIST changes: +CONRAY-60 60% 50ML VIAL (Q9961) As Ordered ONE; +LIDOCAINE 1% MDV 20ML VIAL SQ PRN; +LR 1,000 ML IV ONE; +ceFAZolin SOD 2 GM in IV 1 EA IV ONE
[2020-12-22] MEDS ORDERED: LIDOCAINE 2% 100MG/5ML SDV (FOR ANES.) As Ordered ONE (13:17)
[2020-12-22] MEDS ORDERED: propofoL 200 MG/20 ML VIAL As Ordered ONE (13:17)
[2020-12-22] MEDS ORDERED: fentaNYL 100 MCG/2 ML INJECTION (J3010) As Ordered ONE (13:17)
[2020-12-22] MEDS ORDERED: PHENYLephrine 500MCG 5ML (100MCG/ML) SYRINGE As Ordered ONE (13:17)
[2020-12-22] MEDS ORDERED: MIDAZOLAM INJ 2MG/2ML VIAL (J2250 PER 1MG) As Ordered ONE (13:17)
[2020-12-22] MEDS ORDERED: ONDANSETRON 4MG/2ML VIAL As Ordered ONE (13:17)
[2020-12-22] MEDS ORDERED: ePHEDrine SULFATE 25 MG/5 ML(5MG/ML) SYRINGE As Ordered ONE (13:17)
--- NOTE | 2020-12-22 15:10 | REP ---
INDICATION: RIGHT STENT PLACEMENT. COMPARISON: None. TECHNIQUE: Two C-arm views abdomen and pelvis. FINDINGS: Contrast partially opacifies the right pelvocaliceal system. Right ureteral stent is visualized, the proximal end is coiled in the right renal pelvis and the distal end in the urinary bladder. IMPRESSION: 7 seconds of fluoroscopy time was utilized. <Electronically signed by Octavio Lizama > 12/22/20 0236
[2020-12-22] MEDS ORDERED: fentaNYL 100 MCG/2 ML INJECTION (J3010) IV PRN (15:20)
[2020-12-22] MEDS ORDERED: LR 1,000 ML IV SCH (15:20)
[2020-12-22] MEDS ORDERED: ONDANSETRON 4MG/2ML VIAL IV PRN (15:20)
[2020-12-22] MEDS ORDERED: oxyCODONE 5MG TAB PO PRN (15:20)
[2020-12-22] MEDS ORDERED: KETOROLAC 30 MG/ML 1ML VIAL IV PRN (15:25)
[2020-12-22] MEDS ORDERED: oxyBUTYnin 5 MG TAB PO PRN (15:25)
[2020-12-22] MEDS ORDERED: OXYB5TAB10 PO (15:33)
--- NOTE | 2020-12-22 15:35 | RO ---
OPERATIVE NOTE DATE OF OPERATION: 12/22/2020 PREOPERATIVE DIAGNOSIS: Right ureteral stone. POSTOPERATIVE DIAGNOSIS: Right ureteral stone. PROCEDURE: Cystoscopy, right ureteroscopy with laser lithotripsy and basket extraction of stone, right retrograde pyelogram with intraop interpretation of images, right ureteral stent exchange. SURGEON: Declan De Luna MD ASSOCIATE DIRECTOR CAREER SERVICES: None. ANESTHESIA: General. OPERATIVE INDICATIONS: This is a 55-year-old female who was found to have an obstructing 8-9 mm proximal right ureteral stone recently. She had a right ureteral stent placed at that time. She is brought to the operating room today to treat her stone. DESCRIPTION OF PROCEDURE: The patient was brought to the operating room and general anesthesia was induced. Prophylactic antibiotics were infused. She was placed in dorsal lithotomy position and prepped and draped in usual sterile fashion. A rigid cystoscope was inserted in urethral meatus and advanced into the bladder. The previously placed right ureteral stent was grasped and withdrawn. I advanced a guidewire up the stent and then removed the stent completely. I then advanced the ureteral access sheath over the wire. I went up the access sheath with flexible ureteroscope and within the proximal ureter the 9 mm stone was seen. There was significant amount of edema inside the ureter. I then utilized 272 micron laser fiber to fragment the stone into smaller pieces and remove all the fragments using basket. I then examined the right kidney thoroughly. No stones were seen inside the kidney. There were a lot of calcifications embedded in renal papilla indicative of nephrocalcinosis. Once I confirmed that there were no stones inside the right kidney a retrograde pyelogram was performed. It was notable for moderate right hydronephrosis with no extravasation. I then withdrew the ureteroscope along with the access sheath and no additional stones were seen inside the ureter. I utilized the guidewire to advanced 6-Slovak x 22-32 cm JJ ureteral stent up the right collecting system. The wire was removed and there were adequate curls of the stent in right renal pelvis and in the bladder. The bladder was emptied of all fluids and this marked the conclusion of the procedure. The patient was taken out of the dorsal lithotomy position, awakened from anesthesia and transported to the recovery room in stable condition. ESTIMATED BLOOD LOSS: 5 mL. COMPLICATIONS: None. SPECIMEN: Kidney stone fragments. PLAN: The patient will follow up in urology clinic in a few weeks for stent removal.
[2020-12-22 16:15] VITALS: BP 128/58
== END 2020-12-22 16:30 | disposition home or self-care (01) ==
LOC: M SDC 13:06
PROVIDERS: ATTEND Urology
DX: N20.0 Calculus of kidney (principal); E11.9 Type 2 diabetes mellitus without complications; E03.9 Hypothyroidism, unspecified; K21.9 Gastro-esophageal reflux disease without esophagitis; F41.9 Anxiety disorder, unspecified; K57.92 Diverticulitis of intestine, part unspecified, without perforation or abscess without bleeding; F32.9 Major depressive disorder, single episode, unspecified; Z87.891 Personal history of nicotine dependence; Z91.040 Latex allergy status; Z91.048 Other nonmedicinal substance allergy status; Z88.5 Allergy status to narcotic agent; Z79.899 Other long term (current) drug therapy
CPT/HCPCS: 52356; 74420; 82365; 88300; C1769; C1894; C2617; J0690; J1885; J2250; J2370; J2405; J3010; Q9961

== ENCOUNTER → 2021-01-05 | Outpatient (REF) | payer BC ==
[~2021-01-05] MED LIST changes: -CONRAY-60 60% 50ML VIAL (Q9961) As Ordered ONE; -LIDOCAINE 1% MDV 20ML VIAL SQ PRN; -LR 1,000 ML IV ONE; +OXYB5TAB10 PO; -ceFAZolin SOD 2 GM in IV 1 EA IV ONE
== END ==
LOC: M SMT 18:36
PROVIDERS: ATTEND Urology
DX: R30.0 Dysuria (principal)

== ENCOUNTER → 2021-04-05 | Outpatient (CLI) | payer BC | LOC: M WHC 12:37 | PROVIDERS: ATTEND Nurse Practitioner Adult Health | DX: Z12.31 Encounter for screening mammogram for malignant neoplasm of breast (principal); Z53.8 Procedure and treatment not carried out for other reasons ==

== ENCOUNTER → 2021-04-10 | Outpatient (CLI) | payer BC ==
[2021-04-10 13:20] LABS: ALT/SGPT 61 U/L (12-78); BILIRUBIN,TOTAL 0.4 MG/DL (0.2-1.0); BLOOD UREA NITROGEN 16 MG/DL (7-18); CALCIUM LEVEL 8.9 MG/DL (8.5-10.1); CARBON DIOXIDE LEVEL 29 MEQ/L (21-32); CHLORIDE LEVEL 106 MEQ/L (98-107); CHOLESTEROL LEVEL 311 MG/DL (<200); CHOLESTEROL RISK RATIO 7.068 (<5); CREATININE FOR GFR 0.84 MG/DL (0.55-1.30); GLOMERULAR FILTRATION RATE > 60.0 (>51); GLUCOSE, FASTING 123 MG/DL (70-100); HDL CHOLESTEROL 44 MG/DL (>40); LDL CHOLESTEROL 212 MG/DL (<100); NON-HDL-C 267 MG/DL; POTASSIUM SERUM 4.3 MEQ/L (3.5-5.1); SODIUM LEVEL 140 MEQ/L (136-145); TOTAL 25(OH) VITAMIN D 27.6 NG/ML (30.0-100.0); TOTAL PROTEIN 7.6 GM/DL (6.4-8.2); TRIGLYCERIDES LEVEL 273 MG/DL (<150)
== END ==
LOC: M PLALAB 07:48
PROVIDERS: ATTEND Nurse Practitioner Adult Health
DX: E55.9 Vitamin D deficiency, unspecified (principal); K21.9 Gastro-esophageal reflux disease without esophagitis; E11.9 Type 2 diabetes mellitus without complications; E03.9 Hypothyroidism, unspecified; Z13.220 Encounter for screening for lipoid disorders

== ENCOUNTER → 2021-05-04 | Outpatient (CLI) | payer BC ==
--- NOTE | 2021-05-04 09:15 | REPMRS ---
Patient History The patient states she has not had a clinical breast exam in over a year. Patient is postmenopausal. No known family history of cancer. Took hormonal contraceptives for 2 years. Took estrogen for 7 years beginning at age 39. Took progesterone for 7 years beginning at age 39. Patient states no breast complaints today. Patient has signed MRS History Sheet. Digital Woman Screen Mammo: May 04, 2021 - Exam #: [id number] Bilateral CC and MLO view(s) were taken. Technologist: Jennifer Stallworth, Technologist Prior study comparison: January 08, 2013, bilateral bilat screen digital mammo, performed at [facility] ([facility]). January 08, 2012, bilateral bilat screen digital mammo, performed at [facility] ([facility] FINDINGS: The breast tissue is almost entirely fat. Screening. Digital screening (2D) mammography was performed bilaterally in the CC and MLO projections. Additionally, breast tomosynthesis (3D mammography) was performed bilaterally in the CC and MLO projections. Todays exam was compared to the prior exam/exams. By history, the patient has no complaints of a palpable breast abnormality or other significant breast complaints. The Volpara volumetric breast density category is A, the breasts are almost entirely fatty. The breasts are unchanged in size and shape. There are no enrique-soft tissue densities or spiculated masses. There is no internal architectural distortion. There are no suspicious enrique-calcific clusters. Skin thickening or nipple retraction is not present. IMPRESSION: BI-RADS Category 2- Benign Findings. There is no evidence of malignant alteration of the breasts. Followup examination recommended in one year. This mammogram was read with the assistance of [facility] [place] [facility],an FDA approved computer aided detection system for mammography. The lifetime Tyrer-Cuzick score is 5.3% Negative x-ray reports should not delay surgical consultation if a dominant or clinically suspicious mass is present. Not all breast cancers can be identified by mammography. Therefore, we recommend that you continue to perform regular breast self-examination and physical examination and then promptly contact your physician of any concerns or changes. Adenosis and dense breasts may obscure an underlying neoplasm. No significant changes when compared with prior studies. Assessment: BI-RADS/ACR category 2 mammogram. Benign Findings. Recommendation Routine screening mammogram of both breasts in 1 year. Electronically Signed By: Hayden Navarrete MD 05/04/21 0915
== END ==
LOC: M WHC 07:42
PROVIDERS: ATTEND Nurse Practitioner Adult Health
DX: Z12.31 Encounter for screening mammogram for malignant neoplasm of breast (principal)

== ENCOUNTER → 2021-06-15 | Outpatient (CLI) | payer BC | LOC: M LAB 08:34 | PROVIDERS: ATTEND Nurse Practitioner Adult Health | DX: E03.9 Hypothyroidism, unspecified (principal) ==

== ENCOUNTER → 2021-06-15 | Outpatient (CLI) | payer BC ==
--- NOTE | 2021-06-15 10:23 | REP ---
INDICATION: CALCULUS OF KIDNEY. COMPARISON: None. FINDINGS: KUB shows the intestinal gas pattern to be nonspecific. The organ silhouettes insofar as delineated are unremarkable. There is no evidence of free intraperitoneal air. Multiple tiny calcifications appear to be superimposed over the superimposed region of the right kidney and in the mid and lower pole region of the left kidney. These are too small to count or measure. There is evidence of bilateral pelvic phleboliths. IMPRESSION: As above. <Electronically signed by Jerman Mcbride > 06/15/21 101
== END ==
LOC: M RAD 08:40
PROVIDERS: ATTEND Urology
DX: N20.0 Calculus of kidney (principal)

== ENCOUNTER → 2021-07-27 | Outpatient (CLI) | payer BC ==
[~2021-07-27] MED LIST changes: -OMEP-221 PO; +OMEP40CA5 PO
== END ==
LOC: M RAD 07:15
PROVIDERS: ATTEND Nurse Practitioner Adult Health
DX: Z12.2 Encounter for screening for malignant neoplasm of respiratory organs (principal)

== ENCOUNTER → 2021-10-11 | Outpatient (CLI) | payer BC ==
[2021-10-11 11:56] LABS: HEMOGLOBIN A1c 6.1 %
[2021-10-11 12:30] LABS: ALBUMIN 4.4 GM/DL (3.2-5.2); ALT/SGPT 59 U/L (12-78); BILIRUBIN,TOTAL 0.6 MG/DL (0.2-1.0); BLOOD UREA NITROGEN 23 MG/DL (7-18); CALCIUM LEVEL 9.9 MG/DL (8.5-10.1); CARBON DIOXIDE LEVEL 30 MEQ/L (21-32); CHLORIDE LEVEL 106 MEQ/L (98-107); CHOLESTEROL LEVEL 294 MG/DL (<200); GLOMERULAR FILTRATION RATE > 60.0 (>51); GLUCOSE, FASTING 120 MG/DL (70-100); HDL CHOLESTEROL 50 MG/DL (>40); LDL CHOLESTEROL 210 MG/DL (<100); NON-HDL-C 244 MG/DL; POTASSIUM SERUM 5.1 MEQ/L (3.5-5.1); SODIUM LEVEL 142 MEQ/L (136-145); TOTAL PROTEIN 7.9 GM/DL (6.4-8.2); TRIGLYCERIDES LEVEL 171 MG/DL (<150)
[2021-10-11 12:38] LABS: MALB URINE SIEMENS 25.4 MG/L; MAU/CREAT RATIO 21.1 MCG/MG (0.0-30.0)
[2021-10-11 16:27] LABS: FREE T4 1.17 NG/DL (0.76-1.46)
== END ==
LOC: M PLALAB 07:01
PROVIDERS: ATTEND Nurse Practitioner Adult Health
DX: E03.9 Hypothyroidism, unspecified (principal)

== ENCOUNTER → 2021-10-11 | Outpatient (REF) | payer BC | LOC: M SFHCPLAZ 07:56 | PROVIDERS: ATTEND Nurse Practitioner Adult Health | DX: R30.0 Dysuria (principal); Z53.9 Procedure and treatment not carried out, unspecified reason ==

== ENCOUNTER → 2022-02-04 | Outpatient (CLI) | payer BC | LOC: M WUC 09:44 | PROVIDERS: ATTEND Physical Medicine & Rehabilitation | DX: M51.36 Other intervertebral disc degeneration, lumbar region (principal) ==

== ENCOUNTER → 2022-03-08 | Outpatient (CLI) | payer BC ==
[2022-03-08 15:45] LABS: PLATELET COUNT, AUTOMATED 294 10^3/uL (150-450)
[2022-03-08 15:55] LABS: INR 0.91; PROTHROMBIN TIME 12.7 SECONDS (12.7-14.5)
[2022-03-08 15:56] LABS: PARTIAL THROMBOPLASTIN TIME 27.1 SECONDS (25.9-37.0)
== END ==
LOC: M WUC 11:48
PROVIDERS: ATTEND Physical Medicine & Rehabilitation
DX: M51.36 Other intervertebral disc degeneration, lumbar region (principal)

== ENCOUNTER → 2022-04-19 | Outpatient (CLI) | payer BC ==
[2022-04-19 15:20] LABS: ALT/SGPT 53 U/L (12-78); BILIRUBIN,TOTAL 0.8 MG/DL (0.2-1.0); BLOOD UREA NITROGEN 12 MG/DL (7-18); CALCIUM LEVEL 9.3 MG/DL (8.5-10.1); CARBON DIOXIDE LEVEL 29 MEQ/L (21-32); CHLORIDE LEVEL 107 MEQ/L (98-107); CHOLESTEROL LEVEL 256 MG/DL (<200); CHOLESTEROL RISK RATIO 5.019 (<5); CREATININE FOR GFR 0.72 MG/DL (0.55-1.30); GLOMERULAR FILTRATION RATE > 60.0 (>51); GLUCOSE, FASTING 111 MG/DL (70-100); HDL CHOLESTEROL 51 MG/DL (>40); LDL CHOLESTEROL 174 MG/DL (<100); NON-HDL-C 205 MG/DL; POTASSIUM SERUM 4.8 MEQ/L (3.5-5.1); SODIUM LEVEL 140 MEQ/L (136-145); TOTAL PROTEIN 7.5 GM/DL (6.4-8.2); TRIGLYCERIDES LEVEL 155 MG/DL (<150)
[2022-04-19 15:51] LABS: TOTAL 25(OH) VITAMIN D 54.9 NG/ML (30.0-100.0)
== END ==
LOC: M PLALAB 09:14
PROVIDERS: ATTEND Nurse Practitioner Adult Health
DX: E03.9 Hypothyroidism, unspecified (principal); E11.9 Type 2 diabetes mellitus without complications; E55.9 Vitamin D deficiency, unspecified; Z13.220 Encounter for screening for lipoid disorders

== ENCOUNTER → 2022-06-17 | Outpatient (CLI) | payer BC | LOC: M WHC 10:14 | PROVIDERS: ATTEND Nurse Practitioner Adult Health | DX: Z12.31 Encounter for screening mammogram for malignant neoplasm of breast (principal) ==

== ENCOUNTER → 2022-09-26 | Outpatient (CLI) | payer BC | LOC: M RAD 07:13 | PROVIDERS: ATTEND Nurse Practitioner Adult Health | DX: Z12.2 Encounter for screening for malignant neoplasm of respiratory organs (principal); Z87.891 Personal history of nicotine dependence; J84.10 Pulmonary fibrosis, unspecified; J98.4 Other disorders of lung; J43.9 Emphysema, unspecified ==

== ENCOUNTER → 2022-10-04 | Outpatient (CLI) | payer BC ==
[2022-10-04 11:44] LABS: CREATININE, URINE 31.3 MG/DL; MAU/CREAT RATIO 12.7 MCG/MG (0.0-30.0)
[2022-10-04 11:45] LABS: THYROID STIMULATING HORMONE 2.806 uIU/ML (0.55-4.78); TOTAL 25(OH) VITAMIN D 64.6 NG/ML (20.0-100.0)
[2022-10-04 11:54] LABS: ALBUMIN 4.2 G/DL (3.2-5.2); ALKALINE PHOSPHATASE 132 U/L (46-116); ALT/SGPT 31 U/L (7.0-40); AST/SGOT 23 U/L (<34); BILIRUBIN,TOTAL 0.8 MG/DL (0.3-1.2); BLOOD UREA NITROGEN 16 MG/DL (9-23); CALCIUM LEVEL 9.4 MG/DL (8.5-10.1); CARBON DIOXIDE LEVEL 32 MMOL/L (20-31); CHLORIDE LEVEL 104 MMOL/L (98-107); CHOLESTEROL LEVEL 232 MG/DL (<200); CHOLESTEROL RISK RATIO 3.96 (<5); CREATININE FOR GFR 0.68 MG/DL (0.55-1.30); GLOMERULAR FILTRATION RATE > 60.0 (>51); GLUCOSE, FASTING 94 MG/DL (60-100); HDL CHOLESTEROL 58.5 MG/DL (>40); LDL CHOLESTEROL 148.3 MG/DL (<100); NON-HDL-C 174 MG/DL; POTASSIUM SERUM 4.1 MMOL/L (3.5-5.1); SODIUM LEVEL 142 MMOL/L (136-145); TOTAL PROTEIN 7.4 G/DL (5.7-8.2); TRIGLYCERIDES LEVEL 126 MG/DL (<150)
[2022-10-04 12:03] LABS: HEMOGLOBIN A1c 5.8 % (4.0-6.0)
== END ==
LOC: M WUC 08:07
PROVIDERS: ATTEND Nurse Practitioner Adult Health
DX: E11.9 Type 2 diabetes mellitus without complications (principal); E55.9 Vitamin D deficiency, unspecified; E03.9 Hypothyroidism, unspecified; E78.2 Mixed hyperlipidemia

== ENCOUNTER → 2022-10-04 | Outpatient (CLI) | payer BC ==
[2022-10-04 11:35] LABS: APPEARANCE, URINE CLEAR (CLEAR); BACTERIA, URINE AUTO NEGATIVE (NEGATIVE); BILIRUBIN, URINE AUTO NEGATIVE (NEGATIVE); BLOOD, URINE BLOOD 2+ (NEGATIVE); COLOR, URINE STRAW (YELLOW); GLUCOSE, URINE (UA) AUTO NEGATIVE (NEGATIVE); KETONE, URINE AUTO NEGATIVE (NEGATIVE); LEUKOCYTE ESTERASE, URINE AUTO NEGATIVE (NEGATIVE); MUCUS, URINE SMALL (NEGATIVE); NITRITE, URINE AUTO NEGATIVE (NEGATIVE); PROTEIN, URINE AUTO NEGATIVE (NEGATIVE); RBC, URINE AUTO 6 /HPF (0-3); SPECIFIC GRAVITY URINE AUTO 1.006 (1.002-1.035); SQUAMOUS EPITHELIAL CELL UR AU 0 /HPF (0-6); UROBILINOGEN, URINE AUTO 0.2 mg/dL (0.0-2.0); WBC, URINE AUTO 1 /HPF (0-3)
== END ==
LOC: M WUC 08:05
PROVIDERS: ATTEND Urology
DX: N39.0 Urinary tract infection, site not specified (principal)

== ENCOUNTER → 2022-11-20 | Outpatient (CLI) | payer BC ==
[2022-11-20 10:14] LABS: PLATELET COUNT, AUTOMATED 271 10^3/uL (150-450)
[2022-11-20 10:44] LABS: INR 0.87
[2022-11-20 10:45] LABS: PARTIAL THROMBOPLASTIN TIME 26.8 SECONDS (24.8-34.2)
== END ==
LOC: M PLALAB 08:35
PROVIDERS: ATTEND Physician Assistant
DX: Z01.818 Encounter for other preprocedural examination (principal); Z79.899 Other long term (current) drug therapy

== ENCOUNTER → 2023-07-11 | Outpatient (REF) | payer BC ==
[~2023-07-11] MED LIST changes: -OXYB5TAB10 PO; +OXYB5TAB11 PO
[2023-07-12 18:07] LABS: CYCLIC CITRULLINATED PEPTIDE 7 units (0-19)
== END ==
LOC: M LAB REF 12:01
PROVIDERS: ATTEND Internal Medicine
DX: M25.50 Pain in unspecified joint (principal)

== ENCOUNTER → 2023-09-25 | Outpatient (REF) | payer BC ==
[~2023-09-25] MED LIST changes: -OXYB5TAB11 PO; +OXYB5TAB14 PO
[2023-09-25 12:41] LABS: FERRITIN 154.6 NG/ML (7.3-270.7)
[2023-09-25 12:45] LABS: PERCENT SATURATION 30.3 % (13.2-45.0)
== END ==
LOC: M LAB REF 12:03
PROVIDERS: ATTEND Internal Medicine
DX: D50.9 Iron deficiency anemia, unspecified (principal); R63.4 Abnormal weight loss; R10.13 Epigastric pain

== ENCOUNTER → 2023-09-25 | Outpatient (CLI) | payer BC ==
[~2023-09-25] MED LIST changes: +GASTROGRAFIN SOLUTION 30ML As Ordered ONE; +ISOVUE-370 76% 100ML VIAL As Ordered ONE
== END ==
LOC: M RAD 09:45
PROVIDERS: ATTEND Internal Medicine
DX: N20.0 Calculus of kidney (principal); K76.0 Fatty (change of) liver, not elsewhere classified; K57.90 Diverticulosis of intestine, part unspecified, without perforation or abscess without bleeding; R10.13 Epigastric pain; R11.0 Nausea
CPT/HCPCS: 74177; Q9963; Q9967

== ENCOUNTER → 2023-12-05 | Outpatient (CLI) | payer BC ==
[~2023-12-05] MED LIST changes: -GASTROGRAFIN SOLUTION 30ML As Ordered ONE; -ISOVUE-370 76% 100ML VIAL As Ordered ONE
== END ==
LOC: M LAB 07:47
PROVIDERS: ATTEND Internal Medicine Gastroenterology
DX: K58.0 Irritable bowel syndrome with diarrhea (principal)

== ENCOUNTER → 2023-12-05 | Outpatient (CLI) | payer BC ==
[2023-12-05 08:30] LABS: PLATELET COUNT, AUTOMATED 271 10^3/uL (150-450)
[2023-12-05 08:46] LABS: INR 0.96; PARTIAL THROMBOPLASTIN TIME 24.9 SECONDS (24.8-34.2); PROTHROMBIN TIME 12.5 SECONDS (12.5-14.5)
== END ==
LOC: M LAB 07:50
PROVIDERS: ATTEND Physician Assistant
DX: Z01.818 Encounter for other preprocedural examination (principal)

== ENCOUNTER → 2024-01-23 | Outpatient (CLI) | payer BC ==
[~2024-01-23] MED LIST changes: +DOXY100T PO; +E-Z-GAS II EFFERVESCENT PACKET (SODIUM BICARB./CITRIC ACID/SIMETHICONE) As Ordered ONE; +E-Z-HD 98% w/w 340GM SUSP BTL As Ordered ONE; +E-Z-PAQUE 96% w/w SUSP 176GM BTL As Ordered ONE; +ERGO500029 PO; +EZET10TA21 PO; +TRAM50TA2 PO
== END ==
LOC: M RAD 07:04
PROVIDERS: ATTEND Internal Medicine Gastroenterology
DX: R13.10 Dysphagia, unspecified (principal); K44.9 Diaphragmatic hernia without obstruction or gangrene; K21.9 Gastro-esophageal reflux disease without esophagitis

== ENCOUNTER → 2024-01-27 | Outpatient (REF) | payer BC ==
[~2024-01-27] MED LIST changes: -E-Z-GAS II EFFERVESCENT PACKET (SODIUM BICARB./CITRIC ACID/SIMETHICONE) As Ordered ONE; -E-Z-HD 98% w/w 340GM SUSP BTL As Ordered ONE; -E-Z-PAQUE 96% w/w SUSP 176GM BTL As Ordered ONE
== END ==
LOC: M LAB REF 11:21
PROVIDERS: ATTEND Internal Medicine
DX: E03.9 Hypothyroidism, unspecified (principal); Z11.59 Encounter for screening for other viral diseases; R61 Generalized hyperhidrosis

== ENCOUNTER 2024-02-05 09:55 | Day surgery (SDC) | payer BC ==
[~2024-02-05] VITALS: Ht 165.1 cm; Wt 63.8 kg
[~2024-02-05 09:55] MED LIST changes: +NS 1,000 ML IV ONE
[2024-02-05] MEDS ORDERED: LIDOCAINE 2% 100MG/5ML SDV (FOR ANES.) As Ordered ONE (11:51)
[2024-02-05] MEDS ORDERED: fentaNYL 100 MCG/2 ML INJECTION As Ordered ONE (11:52)
[2024-02-05] MEDS ORDERED: propofoL 500 MG/50 ML VIAL As Ordered ONE (11:54)
[2024-02-05 14:04] VITALS: BP 110/53; O2SAT 95
== END 2024-02-05 14:10 | disposition home or self-care (01) ==
LOC: M OPP 09:55
PROVIDERS: ATTEND Internal Medicine Gastroenterology
DX: R19.4 Change in bowel habit (principal); D12.2 Benign neoplasm of ascending colon; K63.5 Polyp of colon; K64.8 Other hemorrhoids; K57.30 Diverticulosis of large intestine without perforation or abscess without bleeding; K29.70 Gastritis, unspecified, without bleeding; K22.89 Other specified disease of esophagus; R12 Heartburn; R13.10 Dysphagia, unspecified; E11.9 Type 2 diabetes mellitus without complications; R07.9 Chest pain, unspecified; Z79.890 Hormone replacement therapy; Z79.891 Long term (current) use of opiate analgesic; Z79.899 Other long term (current) drug therapy; Z88.5 Allergy status to narcotic agent; Z91.040 Latex allergy status; Z91.048 Other nonmedicinal substance allergy status
CPT/HCPCS: 43239; 45380; 45385; 88305; J3010

== ENCOUNTER → 2024-02-06 | Outpatient (REF) | payer BC ==
[~2024-02-06] MED LIST changes: -NS 1,000 ML IV ONE
== END ==
LOC: M LAB REF 11:59
PROVIDERS: ATTEND Internal Medicine
DX: Z11.59 Encounter for screening for other viral diseases (principal)

== ENCOUNTER → 2024-02-18 | Outpatient (CLI) | payer BC | LOC: M RAD 11:27 | PROVIDERS: ATTEND Internal Medicine | DX: E04.1 Nontoxic single thyroid nodule (principal); E03.9 Hypothyroidism, unspecified ==

== ENCOUNTER → 2024-06-07 | Outpatient (REF) | payer BC | LOC: M LAB REF 13:11 | PROVIDERS: ATTEND Internal Medicine | DX: Z11.59 Encounter for screening for other viral diseases (principal) ==

== ENCOUNTER → 2024-07-02 | Outpatient (REF) | payer BC | LOC: M LAB REF 12:24 | PROVIDERS: ATTEND Internal Medicine | DX: R61 Generalized hyperhidrosis (principal); R53.83 Other fatigue; R23.2 Flushing ==

== ENCOUNTER → 2024-07-05 | Outpatient (REF) | payer BC | LOC: M LAB REF 08:23 | PROVIDERS: ATTEND Internal Medicine | DX: E87.6 Hypokalemia (principal); R53.83 Other fatigue; R23.3 Spontaneous ecchymoses ==

== ENCOUNTER → 2024-08-06 | Outpatient (CLI) | payer BC ==
[~2024-08-06] MED LIST changes: +ISOVUE-370 76% 100ML VIAL As Ordered ONE
== END ==
LOC: M RAD 08:53
PROVIDERS: ATTEND Internal Medicine
DX: R59.0 Localized enlarged lymph nodes (principal)
CPT/HCPCS: 70491; Q9967

== ENCOUNTER → 2024-08-30 | Outpatient (CLI) | payer BC | LOC: M RAD 08:45 | PROVIDERS: ATTEND Internal Medicine | DX: R91.8 Other nonspecific abnormal finding of lung field (principal); Z11.1 Encounter for screening for respiratory tuberculosis; J98.4 Other disorders of lung | CPT/HCPCS: 71260; Q9967 ==

== ENCOUNTER → 2024-09-14 | Outpatient (CLI) | payer BC ==
[~2024-09-14] MED LIST changes: -ISOVUE-370 76% 100ML VIAL As Ordered ONE
== END ==
LOC: M PLARAD 08:00
PROVIDERS: ATTEND Internal Medicine
DX: R91.8 Other nonspecific abnormal finding of lung field (principal); K52.9 Noninfective gastroenteritis and colitis, unspecified
CPT/HCPCS: 78815; A9552

== ENCOUNTER → 2024-09-16 | Outpatient (CLI) | payer BC ==
[2024-09-16 12:12] LABS: INR 0.98; PROTHROMBIN TIME 13.2 SECONDS (12.5-14.5)
[2024-09-16 12:25] LABS: BILIRUBIN,DIRECT 0.2 MG/DL (<0.4); BILIRUBIN,TOTAL 0.8 MG/DL (0.3-1.2); TOTAL PROTEIN 7.4 G/DL (5.7-8.2)
== END ==
LOC: M LAB 11:15
PROVIDERS: ATTEND Internal Medicine Pulmonary Disease
DX: R91.1 Solitary pulmonary nodule (principal)

== ENCOUNTER → 2024-10-11 | Outpatient (CLI) | payer BC ==
[~2024-10-11] MED LIST changes: +LIDOCAINE 1% MDV 20ML VIAL As Ordered ONE
== END ==
LOC: M IRPRO 10:26
PROVIDERS: ATTEND Otolaryngology
DX: D37.030 Neoplasm of uncertain behavior of the parotid salivary glands (principal)